=== PATIENT | male | born 1940 | race Caucasian/White ===

== ENCOUNTER 2016-09-05 08:13 | Emergency (ER) | payer OTHER ==
[2016-09-05 08:30] VITALS: BP 130/72; PULSE 102; RESP 16; TEMP 98.6; O2SAT 93
--- NOTE | 2016-09-05 08:46 | UCPHY ---
H & P Patient Type: Established Chief Complaint Nursing Narrative: C/o R jaw pain and swelling x 2 days. Diagnosed with infected parotid gland and prescribed Augmentin 2 days ago at PCP 's office. Time Seen by Provider: 09/05/16 08:27 HPI/ROS: Chief complaint: Right face and jaw pain HPI: Patient is presenting with 2 days of right face and jaw pain. He was seen by his primary care physician 2 days ago and diagnosed with parotitis. He was started on Augmentin at that time. He took his 1st dose Thursday evening. Patient is presenting with persistent pain. He has not been taking any pain medication. He is concerned that the infection is not improving after a day and half of antibiotics. Has had perhaps a little bit more swelling but is not significantly worse. Pain is primarily just in front of his cheek and a at his jaw. Has some pain with jaw movement. Some pain with chewing. No pain with swallowing. No difficulty breathing. No fevers or chills. ROS: 10 point Review of Systems is negative except as noted in the HPI. Physical exam: Gen: Awake, Alert, No Distress HEENT: Ears: Bilateral TMs are normal, no erythema or bulging. External auditory canals are clear. Nose: no rhinorrhea Eyes: PERRLA, EOMI Mouth: Moist mucosa he has tenderness along his parotid gland on examination and palpation. He has no submandibular swelling or tenderness to suggest an abscess. There is no swelling or fluctuance in his neck. He has a very mild trismus. Has no peritonsillar edema or swelling. Oropharynx is normal. Ext: no edema, non-tender Skin: no rash Neuro: CN II-XII intact, Sensation grossly intact, Strength 5/5 in bilateral upper and lower extremities - Personal History Current Tetanus Diphtheria and Acellular Pertussis (TDAP): Yes Tetanus Vaccine Date: within 10yrs - Medical/Surgical History Hx Asthma: No Hx Chronic Respiratory Disease: No Hx Diabetes: No Hx Cardiac Disease: Yes Hx Renal Disease: No Hx Cirrhosis: No Hx Alcoholism: No Hx HIV/AIDS: No Hx Splenectomy or Spleen Trauma: No Other PMH: High cholesterol, High BP, kidney stones, [id number], HTN, L1-L3 kyphoplasty - Family History Significant Family History: No pertinent family hx - Social History Smoking Status: Former smoker Constitutional: Initial Vital Signs Temperature (C) 37.0 C 09/05/16 08:27 Heart Rate 102 H 09/05/16 08:27 Respiratory Rate 16 09/05/16 08:27 Blood Pressure 130/72 H 09/05/16 08:27 O2 Sat (%) 93 09/05/16 08:27 O2 Delivery Mode Room Air Allergies/Adverse Reactions: No Known Allergies Allergy (Verified 09/05/16 08:29) Home Medications: Medication Instructions Recorded Augmentin 875 MG TAB (*) 09/05/16 Cartia Xt 09/05/16 Glucosamine 09/05/16 Iron 09/05/16 Losartan/Hydrochlorothiazide 09/05/16 Multivitamin 09/05/16 Simvastatin 09/05/16 VITAMIN D 09/05/16 Warfarin Sodium 09/05/16 oxyCODONE/APAP 5/325 [Percocet 1 - 2 tab PO Q4H PRN #10 tab 09/05/16 5/325 (*)] Medical Decision Making ED Course/Re-evaluation: 76-year-old male presenting with symptoms of a parotitis. He has only been taking antibiotics for the last day and half. There are no clinical findings to suggest an abscess. There is no submandibular tenderness. There is no anterior neck tenderness or fullness. He does have tenderness over his parotid gland. Patient could also have a parotid duct stone. There is no erythema. He has not been taking any analgesia. I do not feel there is indication for CT scanning at this time because there is no evidence of a collection. He has an appointment with an ear nose and throat doctor on Thursday. Will be given a prescription for Percocet now. He will return to the emergency department for increasing pain, swelling, difficulty swallowing, difficulty breathing, or any other concerns. Otherwise he will continue the antibiotics, analgesia, and follow up with Ear Nose and Throat on Thursday as scheduled. Departure - Departure Disposition: Home, Routine, Self-Care Clinical Impression: Parotitis Condition: Good Instructions: Sialoadenitis (ED) Additional Instructions: Return to the emergency department for increasing pain, swelling, difficulty swallowing, difficulty breathing, or any other concerns. Continue taking your full course of antibiotics. Follow up with Ear Nose and Throat doctor on Thursday as scheduled. Referrals: Fabio Craig DO [Primary Care Provider] - As per Instructions Prescriptions: oxyCODONE/APAP 5/325 [Percocet 5/325 (*)] 1 - 2 tab PO Q4H PRN #10 tab PRN Reason: Pain, Severe - PQRS PQRS Measurement: 134: Depression screening and followup, PRIME MD-PHQ2 (12 years and older) Over the last 2 weeks, how often have you been bothered by any of the following problems? 1. Feeling down, depressed, or hopeless? 2. Little interest or pleasure in doing things? Patient answered no to both 1 and 2 130: Documentation of medications. Reviewed all patient medications, doses, route and frequency. 226: Do you smoke? No. 47: 65 and older: Advanced care planning. Patient designates surrogate decision maker as spouse . Patient has advanced directive. 51: 18 years old and older with diagnosis of COPD, spirometry performance. Patient has no history of COPD 52: 18 years old and older with COPD and symptoms of COPD or FEV1<60% predicted prescribed a B Agonist. Spirometry not performed; equipment not available.
== END 2016-09-05 08:56 | disposition home or self-care (01) ==
LOC: CED 08:13
DX: K11.20 Sialoadenitis, unspecified (principal); I10 Essential (primary) hypertension; E78.00 Pure hypercholesterolemia, unspecified; I48.91 Unspecified atrial fibrillation; Z87.891 Personal history of nicotine dependence; Z87.442 Personal history of urinary calculi
CPT/HCPCS: G0463-PO